=== PATIENT | female | born 2000 | race Caucasian/White ===

== ENCOUNTER → 2023-11-10 06:30 | Day surgery (SDC) | payer OTHER, SELFPAY | LOC: GI 06:30 | PROVIDERS: ATTENDING PHYSICIAN Internal Medicine Gastroenterology | DX: D50.9 Iron deficiency anemia, unspecified (principal); R14.0 Abdominal distension (gaseous); R19.7 Diarrhea, unspecified; K64.0 First degree hemorrhoids | CPT/HCPCS: 45380; 88305 ==